=== PATIENT | male | born 1955 | race African-American/Black ===

== ENCOUNTER → 2017-12-06 | Outpatient (CLI) | payer OTHER | LOC: M CARPUL 08:21 | DX: R01.1 Cardiac murmur, unspecified (principal) | CPT/HCPCS: 93306 ==

== ENCOUNTER 2017-12-20 09:15 | Day surgery (SDC) | payer OTHER ==
[2017-12-20] MEDS: NS 1,000 ML IV (06:00)
[~2017-12-20 09:15] MED LIST: PROPOFOL 200 MG/20 ML VIAL As Ordered
[2017-12-20] MEDS ORDERED: PROPOFOL 200 MG/20 ML VIAL As Ordered (11:04)
== END 2017-12-20 12:00 | disposition home or self-care (01) ==
LOC: M OPP 09:15
DX: Z12.11 Encounter for screening for malignant neoplasm of colon (principal); D12.5 Benign neoplasm of sigmoid colon; K57.30 Diverticulosis of large intestine without perforation or abscess without bleeding
CPT/HCPCS: 45380

== ENCOUNTER → 2020-02-28 | Outpatient (CLI) | payer SELFPAY ==
[~2020-02-28] MED LIST changes: +LISI40TA4 PO; +LOVA40TA PO; -PROPOFOL 200 MG/20 ML VIAL As Ordered; +TRIA37.5 PO
== END ==
LOC: M LABSMTC 13:29
PROVIDERS: ATTEND Pediatrics
DX: Z20.822 Contact with and (suspected) exposure to COVID-19 (principal)

== ENCOUNTER → 2022-10-26 | Outpatient (CLI) | payer OTHER | LOC: M SOG 07:59 | PROVIDERS: ATTEND Orthopaedic Surgery | DX: M25.461 Effusion, right knee (principal); M17.0 Bilateral primary osteoarthritis of knee ==

== ENCOUNTER → 2023-04-26 | Outpatient (CLI) | payer OTHER | LOC: M SOG 07:58 | PROVIDERS: ATTEND Orthopaedic Surgery | DX: M17.0 Bilateral primary osteoarthritis of knee (principal) ==

== ENCOUNTER → 2024-09-17 | Outpatient (CLI) | payer OTHER ==
[~2024-09-17] MED LIST changes: +LISI40TA10 PO; -LISI40TA4 PO
== END ==
LOC: M SOG 06:48
PROVIDERS: ATTEND Orthopaedic Surgery
DX: M79.645 Pain in left finger(s) (principal); M19.042 Primary osteoarthritis, left hand